=== PATIENT | female | born 1990 | race Caucasian/White ===

== ENCOUNTER 2016-09-11 16:39 | Outpatient (CLI) | payer MEDICAID, OTHER ==
[~2016-09-11] VITALS: Ht 165.1 cm; Wt 88.7 kg
[2016-09-11] MEDS ORDERED: PRENAT PO (17:29)
[2016-09-11 17:30] VITALS: BP 137/64; PULSE 99; RESP 18; Ht 165.1 cm; Wt 88.7 kg
[2016-09-11 17:43] LABS: ADD SCAN DIFF NO; BASOPHILS % 0.1 % (0.0-2.0); EOSINOPHILS % 0.4 % (0.0-7.0); HEMATOCRIT 27.9 % (37.0-47.0); HEMOGLOBIN 9.7 g/dl (12.0-16.0); LYMPHOCYTES # 1.6 10^3/ul (0.8-2.9); LYMPHOCYTES % 22.5 % (15.0-51.0); MEAN CORPUSCULAR HEMOGLOBIN 29.4 pg (29.0-33.0); MEAN CORPUSCULAR HGB CONC 34.8 g/dl (32.0-37.0); MEAN CORPUSCULAR VOLUME 84.5 fl (82.0-101.0); MEAN PLATELET VOLUME 9.8 fl (7.4-10.4); MONOCYTE # 0.6 10^3/ul (0.3-0.9); MONOCYTES % 8.8 % (0.0-11.0); NEUTROPHIL # 4.7 10^3/ul (1.6-7.5); NEUTROPHILS % 67.9 % (39.0-77.0); PLATELET COUNT 202 10^3/UL (140-415); RED CELL DISTRIBUTION WIDTH 12.4 % (11.5-14.5)
[2016-09-11 18:05] LABS: INR 0.96; PROTIME 12.8 Sec (12.2-14.2)
[2016-09-11 18:06] LABS: PARTIAL THROMBOPLASTIN TIME 24.4 Sec (25.0-35.0)
--- NOTE | 2016-09-11 18:06 | RADRPT ---
PROCEDURE: US biophysical profile. CLINICAL INDICATION: Hypertension. TECHNIQUE: Multiple sonographic images of the uterus were obtained. The images were revi ewed on a PACS workstation. COMPARISON: No prior studies are available for comparison. FINDINGS: There is a single live intrauterine gestation. heart rate is 124 beats per minute. The position is cephalic. The placenta is anterior grade 0 with no abruption or previa. The RADHA is 14.6 cm. (Normal = 5-20 cm.) Breathing Movement: 2 Gross Body Movement: 2 Tone: 2 Qualitative Amniotic Fluid Volume: 2 TOTAL: 8 IMPRESSION: 1. The biophysical score is 8/8. RPTAT: QQ .Bob Cardona MD, MD Date Time Electronically viewed and signed by .Bob Cardona MD, on 09/11/2016 18:06 .R/
[2016-09-11 18:10] LABS: ALBUMIN/GLOBULIN RATIO 1.07; BILIRUBIN,INDIRECT 0.1 mg/dl (0-1.1); BILIRUBIN,TOTAL 0.1 mg/dl (0.2-1.3); CALCIUM 8.6 mg/dl (8.4-10.2); CREATININE 0.36 mg/dl (0.44-1.00); POTASSIUM 3.6 mmol/L (3.5-5.1); TOTAL PROTEIN 5.8 g/dl (6.1-8.1); URIC ACID 4.6 mg/dl (3.1-7.9)
[2016-09-11 18:16] LABS: ADD UMIC YES; UR ASCORBIC ACID NEGATIVE (NEGATIVE); UR BILIRUBIN (Dip) NEGATIVE (NEGATIVE); UR BLOOD (Dip) NEGATIVE (NEGATIVE); UR CLARITY CLOUDY (CLEAR); UR COLOR YELLOW (YELLOW); UR GLUCOSE (Dip) NEGATIVE (NEGATIVE); UR KETONES (Dip) NEGATIVE (NEGATIVE); UR LEUKOCYTE ESTERASE (Dip) 3+ Leu/ul (NEGATIVE); UR MUCUS FEW /HPF (NONE SEEN); UR NITRITE (Dip) NEGATIVE (NEGATIVE); UR RBC 3 /HPF (0-5); UR SPECIFIC GRAVITY (Dip) 1.019 (1.003-1.030); UR SQUAMOUS EPITHELIAL CELL MODERATE /HPF (FEW); UR TOTAL PROTEIN (Dip) 1+ mg/dl (NEGATIVE); UR UROBILINOGEN (Dip) 2+ mg/dL (NEGATIVE)
--- NOTE | 2016-09-11 20:54 | TRIAGE ---
OB Triage Datetime Report Generated by CPN: 09/11/2016 20:53 Datetime: 09/11/2016 19:43 Labor Evaluation Frequency: IRRITABILITY NOTED Quality: Mild Pattern: Normal: <= 5 Contractions in 10 Minutes Resting Tone Verdon: Relaxed Heart Rate FHR Baseline Rate: 135 Monitor Mode: External US FHR Baseline Changes: No Baseline Change Variability: Moderate 6-25 bpm Accelerations: 15X15 Decelerations: None Category: Category I Datetime: 09/11/2016 19:15 Assessment Type: Triage Maternal Assessment Level of Consciousness: Fully Conscious DTR's/Clonus: DTRs 2+; No Clonus Headache: Denies Blurred Vision: No Respiratory Effort: Unlabored; Regular Rhythm; Equal Expansion Breath Sounds, Left: Clear and Equal Breath Sounds, Right: Clear and Equal Nausea/Vomiting: Denies RUQ Epigastric Pain: Denies Lower Extremities Edema: Bilateral Lower Extremities Degree: 2+ Upper Extremities Edema: None Degree: None Facial Edema: None Fall Risk Assessment History of Falling: (0) No Secondary Diagnosis: (0) No Ambulatory Aid: (0) Bedrest/Nurse Assist IV Therapy: (0) No Gait: (0) Normal/Bedrest/Immobile Mental Status: (0) Oriented to Own Ability Fall Score: 0 Fall Risk Score Definition: No Risk: No action required Datetime: 09/11/2016 18:00 Stage of : OB Triage Maternal Assessment Level of Consciousness: Fully Conscious Labor Evaluation Frequency: NONE Monitor Mode: External Resting Tone Verdon: Relaxed Heart Rate FHR Baseline Rate: 145 Monitor Mode: External US Variability: Moderate 6-25 bpm Accelerations: 15X15 Decelerations: None Pain Assessment Pain Scale: 0 Pain Goal: 3 Vaginal Exam Membrane Status: Intact Vaginal Bleeding: None Datetime: 09/11/2016 16:50 Assessment Type: Triage Maternal Assessment Level of Consciousness: Fully Conscious DTR's/Clonus: DTRs 2+; No Clonus Headache: Denies Blurred Vision: No Respiratory Effort: Unlabored; Regular Rhythm; Equal Expansion Breath Sounds, Left: Clear and Equal Breath Sounds, Right: Clear and Equal Nausea/Vomiting: Denies RUQ Epigastric Pain: Denies Lower Extremities Edema: Bilateral Lower Extremities Degree: 2+ Upper Extremities Edema: None Degree: None Facial Edema: None Fall Risk Assessment History of Falling: (0) No Secondary Diagnosis: (0) No Ambulatory Aid: (0) Bedrest/Nurse Assist IV Therapy: (0) No Gait: (0) Normal/Bedrest/Immobile Mental Status: (0) Oriented to Own Ability Fall Score: 0 Fall Risk Score Definition: No Risk: No action required Datetime: 09/11/2016 16:49 Time of Arrival: 09/11/2016 16:32 EGA: 29.5 Arrived By: Ambulatory Arrived From: Office Chief Complaint: PT SENT IN FOR EVAL. OF HBP Movement: Present Contractions: Denies/Absent Rupture of Membranes: Denies Vaginal Bleeding: None Vaginal Discharge: Denies Recent Sexual Intercouse: Denies Abdominal Trauma: Not Applicable Patient Complaints: None Time Provider Notified: 09/11/2016 18:30 Provider Notified: LUCILLE Initial Plan: [facility] PANEL, BPP Datetime: 09/11/2016 16:47 Monitor Mode: External Monitor Mode: External US
== END 2016-09-11 19:50 | disposition home or self-care (01) ==
LOC: OBT 16:39 → L-D 16:39 → OBT 19:50
PROVIDERS: ATTEND Obstetrics & Gynecology
DX: O16.3 Unspecified maternal hypertension, third trimester (principal); Z3A.29 29 weeks gestation of pregnancy; O26.893 Other specified pregnancy related conditions, third trimester; R10.9 Unspecified abdominal pain
CPT/HCPCS: 76818; 80053; 81001; 84560; 85025; 85384; 85610; 85730

== ENCOUNTER 2016-11-17 11:10 | Inpatient (IN) | payer OTHER ==
--- NOTE | 2016-09-12 01:08 | PN ---
Triage Information Date/Time Weeks of Gestation 29 5/7 : 1 Para: 0 Diabetes: none Hypertention: induced Additional information 26 Year-old G1 with SIUP at 29 5/7 wks referred from her primary Patient Support Tech fir further follow up. She has BP of 142/89 in office today. She has been receiving her care with Dr. Yun. She states good movement. She denies nausea, vomiting, shortness of breath, chest pain, and abdominal pain between contractions, headache, visual changes, vaginal bleeding or LOF. Physical Exam: General: Patient appears well, alert and oriented, NAD, appropriate mood and affect ABD: gravid, soft, non-tender. Back: No CVA tenderness (B/L) LE: No clubbing, cyanosis, edema, thigh or calf tenderness bilaterally FHT: 135 bpm , moderate variability with acceleration, no deceleration-category I Contractions: None Objective Heart Rate: 140's Assessment/Plan 26 Year-old G1 with SIUP at 29 5/7 wks with GHTN. All her BPs in triage were nml (129-138/61-65)CBC, CMP, U/A, US performed which were nml. - FHR: No sign of metabolic acidosis- Category I - Continuous EFM, toco - Contractions: None. - Reactive NST. BPP: 10/10 - Symptoms and sign of labor, preeclampsia, kick count discussed with patient, she voiced understanding. All of her questions answered. - Patient was discharged home in stable condition with the appropriate discharge instructions provided. I would like patient to have close follow-up with her primary physician or outpatient clinic in 1-2 days or return to the ER for worsening symptoms or any other urgent concerns. SALENA VIVAR Sep 12, 2016 01:08
[~2016-11-17] VITALS: Ht 165.1 cm; Wt 78.0 kg
[~2016-11-17 11:10] MED LIST: PRENAT PO
--- NOTE | 2016-11-17 11:39 | TRIAGE ---
OB Triage Datetime Report Generated by CPN: 11/17/2016 11:38 Datetime: 11/17/2016 11:37 Time of Arrival: 11/17/2016 11:05 EGA: 39.2 Arrived By: Wheelchair Arrived From: Home Chief Complaint: contractions Movement: Present Time Contractions Began: 11/17/2016 04:00 Rupture of Membranes: Denies Vaginal Bleeding: None Vaginal Discharge: Denies Recent Sexual Intercouse: Denies Abdominal Trauma: Not Applicable Patient Complaints: Contractions Time Provider Notified: 11/17/2016 11:30 Provider Notified: Dr Yun Initial Plan: efm/ sve/ us Datetime: 09/11/2016 19:15 Fall Risk Assessment Fall Score: 0 Fall Risk Score Definition: No Risk: No action required Datetime: 09/11/2016 16:50 Fall Risk Assessment Fall Score: 0 Fall Risk Score Definition: No Risk: No action required Datetime: 09/11/2016 16:49 EGA: 29.5
[2016-11-17] MEDS ORDERED: LACTATED RINGER'S 1,000 ML IV SCH (11:47)
[2016-11-17] MEDS ORDERED: MAGNESIUM SULFATE 20 GM/500 ML 500 ML IV SCH (11:48)
[2016-11-17] MEDS ORDERED: MAGNESIUM SULFATE 4 GM/100 ML 100 ML ONE (11:54)
[2016-11-17] MEDS ORDERED: LIDOCAINE 1% (MPF) 30 ML INJ INJ PRN (12:00)
[2016-11-17] MEDS ORDERED: METHYLERGONOVINE 0.2 MG INJ IM PRN ×2 (12:00→21:00)
[2016-11-17] MEDS ORDERED: CARBOPROST 250 MCG INJ IM PRN ×2 (12:00→21:00)
[2016-11-17] MEDS ORDERED: BUTORPHANOL 2 MG INJ IV PRN (12:00)
[2016-11-17] MEDS ORDERED: LACTATED RINGER'S 1,000 ML IV PRN (12:00)
[2016-11-17] MEDS ORDERED: OXYTOCIN 30 UNITS/LR 500 ML IV SCH ×3 (12:00→17:30)
[2016-11-17] MEDS ORDERED: AMPICILLIN 2 GM/NS (PMX) 100 ML IV ONE (12:00)
[2016-11-17] MEDS ORDERED: MISOPROSTOL 200 MCG TAB PR PRN ×2 (12:00→21:00)
[2016-11-17] MEDS ORDERED: MAGNESIUM SULFATE 4 GM/100 ML 100 ML IV ONE (12:00)
[2016-11-17] MEDS ORDERED: IBUPROFEN 600 MG TAB PO PRN (12:00)
[2016-11-17] MEDS ORDERED: OXYTOCIN 30 UNITS/LR 500 ML IV PRN ×2 (12:00→21:00)
[2016-11-17] MEDS ORDERED: LABETALOL HCL 20MG INJ IV ONE ×3 (12:00→21:00)
[2016-11-17 12:23] LABS: BASOPHILS % 0.2 % (0.0-2.0); EOSINOPHILS % 0.2 % (0.0-7.0); HEMATOCRIT 30.4 % (37.0-47.0); HEMOGLOBIN 10.3 g/dl (12.0-16.0); LYMPHOCYTES # 1.7 10^3/ul (0.8-2.9); LYMPHOCYTES % 13.5 % (15.0-51.0); MEAN CORPUSCULAR HEMOGLOBIN 26.7 pg (29.0-33.0); MEAN CORPUSCULAR HGB CONC 33.9 g/dl (32.0-37.0); MEAN CORPUSCULAR VOLUME 78.8 fl (82.0-101.0); MEAN PLATELET VOLUME 11.7 fl (7.4-10.4); MONOCYTE # 0.7 10^3/ul (0.3-0.9); MONOCYTES % 5.3 % (0.0-11.0); NEUTROPHILS % 80.5 % (39.0-77.0); PLATELET COUNT 215 10^3/UL (140-415); RED BLOOD COUNT 3.86 10^6/ul (4.20-5.40); RED CELL DISTRIBUTION WIDTH 13.7 % (11.5-14.5); WHITE BLOOD COUNT 12.3 10^3/ul (4.8-10.8)
[2016-11-17 12:54] LABS: INR 0.94; PROTIME 12.6 Sec (12.2-14.2)
[2016-11-17 12:55] LABS: PARTIAL THROMBOPLASTIN TIME 26.6 Sec (25.0-35.0)
[2016-11-17 12:56] LABS: ALBUMIN 2.6 g/dl (3.3-4.9); ALBUMIN/GLOBULIN RATIO 0.76; BILIRUBIN,INDIRECT 0.3 mg/dl (0-1.1); BILIRUBIN,TOTAL 0.3 mg/dl (0.2-1.3); CREATININE 0.49 mg/dl (0.44-1.00); POTASSIUM 3.6 mmol/L (3.5-5.1); URIC ACID 6.1 mg/dl (3.1-7.9)
--- NOTE | 2016-11-17 13:13 | RADRPT ---
PROCEDURE: OB ultrasound for biophysical profile CLINICAL INDICATION: Contractions TECHNIQUE: Multiple sonographic images of the pelvis were obtained. Transabdominal view of the gr avid uterus are available for review. The images were reviewed on a PACS workstation. COMPARISON: OB ultrasound 09/11/2016. FINDINGS: breathing movement = 2/2 tone = 2/2 motion = 2/2 RADHA = 2/2 RADHA = 14.5 cm Single live intrauterine with cardiac activity. heart rate equals 132.3 beats per minute. Presentation is cephalic. The placenta is anterior. IMPRESSION: 1. Single viable intrauterine gestation. 2. Biophysical profile = 8/8. 3. RADHA = 14.5 cm. RPTAT: KK .Kai Alves MD, MD Date Time Electronically viewed and signed by .Kai Alves MD, MD on 11/17/2016 13:12 .B/
--- NOTE | 2016-11-17 13:14 | RADRPT ---
PROCEDURE: US OB - Limited weight. CLINICAL INDICATION: Contractions TECHNIQUE: Multiple sonographic images of the pelvis were obtained. Transabdominal imaging only w as performed. The images were reviewed on a PACS workstation. COMPARISON: No prior studies are available for comparison. FINDINGS: There is a single viable intrauterine gestation. Cardiac activity is present with 136 beats per min rincon. There is a cephalic presentation. Measurements were made in order to determine age. The results are as follows: BPD = 9.3 cm HC = 32 point a cm AC = 34.4 cm FL = 6.9 .cm Estimated gestational age of approximately 37 weeks 2 days +/ - 2 weeks 4 days by ultrasound evalua tion. The estimated date of delivery is 12/06/2016 by ultrasound. The EFW = 3229 +/- 484 g (26%). The placenta is anterior. IMPRESSION: 1. Single viable intrauterine gestation of approximately 37 weeks 2 days with estimated date of del isi of 12/06/2016 by ultrasound. 2. The estimated weight by ultrasound is 3229 g (26%) . RPTAT: KK .Kai Alves MD, MD Date Time Electronically viewed and signed by .Kai Avles MD, MD on 11/17/2016 13:14 .B/
[2016-11-17] MEDS ORDERED: AMPICILLIN 1 GM/NS (PMX) 50 ML IV SCH (16:00)
[2016-11-17 16:31] LABS: ADD UMIC YES; UR ASCORBIC ACID NEGATIVE (NEGATIVE); UR BILIRUBIN (Dip) NEGATIVE (NEGATIVE); UR BLOOD (Dip) 1+ mg/dL (NEGATIVE); UR CLARITY SLIGHTLY CLOUDY (CLEAR); UR COLOR YELLOW (YELLOW); UR GLUCOSE (Dip) NEGATIVE (NEGATIVE); UR KETONES (Dip) NEGATIVE (NEGATIVE); UR LEUKOCYTE ESTERASE (Dip) TRACE Leu/ul (NEGATIVE); UR MUCUS FEW /HPF (NONE SEEN); UR NITRITE (Dip) NEGATIVE (NEGATIVE); UR RBC 1 /HPF (0-5); UR SPECIFIC GRAVITY (Dip) 1.014 (1.003-1.030); UR SQUAMOUS EPITHELIAL CELL FEW /HPF (FEW); UR TOTAL PROTEIN (Dip) 2+ mg/dl (NEGATIVE); UR UROBILINOGEN (Dip) NEGATIVE (NEGATIVE)
[2016-11-17] MEDS ORDERED: CEFAZOLIN 2 GM/50 ML (PMX) 50 ML IVPB ONE (18:00)
[2016-11-17] MEDS ORDERED: ONDANSETRON 4 MG INJ IV STA (18:01)
[2016-11-17] MEDS ORDERED: CITRIC ACID/NA CITRATE 30 ML CUP PO ONE (18:30)
[2016-11-17 19:10] LABS: BARBITURATES Negative (NEGATIVE); BENZODIAZEPINES Negative (NEGATIVE); CANNABINOIDS Negative (NEGATIVE); COCAINE Negative (NEGATIVE); OPIATES Negative (NEGATIVE)
--- NOTE | 2016-11-17 19:12 | QN ---
Documentation Comment history and physical dictated BRIEN ADKINS MD Nov 17, 2016 19:12
[2016-11-17 19:18] VITALS: BP 175/90; PULSE 90; RESP 18
[2016-11-17 19:19] VITALS: Ht 165.1 cm; Wt 78.0 kg
[2016-11-17] MEDS ORDERED: morphine SULFATE/PF (10 MG/10 ML) INJ ONE (19:40)
[2016-11-17] MEDS ORDERED: PHENYLephrine (100 MCG/ML) 5ML SYG ONE (19:55)
--- NOTE | 2016-11-17 20:47 | SIPON ---
Date/Time of Note Date/Time of Note DATE: 11/17/16 TIME: 20:44 Operative Report Preoperative Diagnosis 26-year-old 1 para 0 interim at 38 weeks gestational age chronic hypertension superimposed preeclampsia with severe features limited care remote from delivery Postoperative Diagnosis Same Operation/Procedure Performed Primary low transverse delivery Surgeon: BRIEN ADKINS MD certified pathology assistant: ASMITA LÓPEZ MD Anesthesia Type: spinal Estimated Blood Loss: other (500ml) Transfusion Required: no Specimen: none Grafts/Implants: none Complications: no BRIEN ADKINS MD Nov 17, 2016 20:47
[2016-11-17] MEDS ORDERED: LABETALOL HCL 20MG INJ IV PRN (21:00)
[2016-11-17] MEDS ORDERED: NALOXONE (0.4 MG/ML) INJ IV PRN (21:00)
[2016-11-17] MEDS ORDERED: HYDROmorphONE 1 MG/ML SYG IV PRN ×2 (21:00)
[2016-11-17] MEDS: CEFAZOLIN 2 GM/50 ML (PMX) 50 ML IV SCH (21:00)
[2016-11-17] MEDS ORDERED: OXYCODONE/ACETAMINOPHEN (5/325) TAB PO PRN (21:00)
[2016-11-17] MEDS ORDERED: CA GLUCONATE (GM) 10% 10ML INJ IV PRN (21:00)
[2016-11-17] MEDS ORDERED: KETOROLAC 30 MG INJ IV PRN ×2 (21:00)
[2016-11-17] MEDS: SENNA/DOCUSATE NA (8.6MG/50MG) TAB PO SCH (21:00)
[2016-11-17] MEDS ORDERED: LANOLIN 7 GM TUBE TOP PRN (21:00)
[2016-11-17] MEDS ORDERED: ZOLPIDEM 5 MG TAB PO PRN (21:00)
[2016-11-17] MEDS ORDERED: ALBUTEROL 0.083% (NEB) 2.5 MG/3 ML AMP HHN PRN (21:00)
[2016-11-17] MEDS ORDERED: HYDROmorphONE (0.2 MG/ML) 10ML SYG IV PRN ×3 (21:00)
[2016-11-17] MEDS ORDERED: DIPHENHYDRAMINE 50 MG INJ IV PRN ×2 (21:00)
[2016-11-17] MEDS ORDERED: ONDANSETRON 4 MG INJ IV PRN ×2 (21:00)
[2016-11-17] MEDS ORDERED: MEPERIDINE 25 MG INJ IV PRN (21:00)
[2016-11-17] MEDS ORDERED: METOCLOPRAMIDE 10 MG INJ IV PRN (21:00)
[2016-11-17] MEDS ORDERED: FENTAnyl 50 MCG/ML VIAL IV PRN ×3 (21:00)
[2016-11-17] MEDS ORDERED: hydrALAzine 20 MG INJ IV ONE (21:00)
--- NOTE | 2016-11-17 21:44 | PREOPHP ---
DATE OF ADMISSION: 11/17/2016 HISTORY OF PRESENT ILLNESS: Ms. Ca Roberts is a 26-year-old 1, para 0, EDC 11/27/2016 intra at 38 weeks and 4 days gestational age with a history of hyperthyroidism and chronic hypertension who presented to triage complaining of contractions. She was seen and evaluated in triage, which she had elevated blood pressure in the 170s over 100s, and the patient complaining of severe frontal headaches. Magnesium sulfate was started with antihypertensive medications and after explaining the risks, benefits, alternatives, patient agreed for a delivery since she is remote from delivery. Her care was very limited at [facility]. She had approximately 3 visits. PAST MEDICAL HISTORY: Hyperthyroidism and chronic hypertension. MEDICATIONS: Labetalol and vitamins. PAST SURGICAL HISTORY: None. OB HISTORY: Primi . DIRECTOR OF CURRICULUM HISTORY: Twelve, regular 34 days. Denies any sexually transmitted disease. Sexually active with 1 partner. SOCIAL HISTORY: Denies any smoking, drugs, or alcohol. FAMILY HISTORY: None. REVIEW OF SYSTEMS: All within normal except history of present illness. PHYSICAL EXAMINATION: HEENT: Within normal limits. LUNGS: CTA bilaterally. CARDIOVASCULAR: S1, S2. Regular rate and rhythm. ABDOMEN: No epigastric pain. No CVA bilateral, gravid nontender. EXTREMITIES: Plus 2 bilateral pitting edema. VAGINAL EXAM: Fingertip 10 percent effaced, -3 station. ASSESSMENT: 1. A 26-year-old, 1, para 0, intra at 38 weeks and 4 days gestational age. 2. Hyperthyroidism. 3. Chronic hypertension with superimposed preeclampsia/severe features, remote from delivery. PLAN: Consent for a primary . Risks, benefits, alternatives explained and all questions were answered. Dictated By: Angel Yun MD /day/nancy /Document#: [id number] JOSE
--- NOTE | 2016-11-18 00:12 | OPR ---
DATE OF OPERATION: 11/17/2016 PREOPERATIVE DIAGNOSIS: A 26-year-old, 1, para 0, intrauterine at 38 weeks gestational age, chronic hypertension, superimposed preeclampsia with severe features, hyperthyroid, limited care, remote from delivery. Desires delivery. POSTOPERATIVE DIAGNOSIS: A 26-year-old, 1, para 0, intrauterine at 38 weeks gestational age, chronic hypertension, superimposed preeclampsia with severe features, hyperthyroid, limited care, remote from delivery. Desires delivery. OPERATIVE PROCEDURE: Primary low transverse delivery via Pfannenstiel incision. SURGEON: Angel Yun MD RESIDENT SERVICE COORDINATOR: Nelly Stovall MD ANESTHESIA: Spinal. COMPLICATIONS: None. ESTIMATED BLOOD LOSS: 500 mL. FINDINGS: A viable female, Apgars 8 and 9 respectively at 1 and 5 minutes, weight 7 pounds 6 ounces with normal uterus, tubes, and ovaries. OPERATIVE PROCEDURE: After explaining the risks, benefits, and alternatives, consent signed in chart, the patient was taken to the operating room where spinal anesthesia was found to be adequate. She was then prepared and draped in normal sterile fashion in dorsal supine position with a leftward tilt. A Pfannenstiel skin incision was then made with a scalpel and carried through the underlying fascia. The fascia was incised in midline and the incision was extended laterally with Ge scissors. The superior aspect of the fascial incision was grasped with Amando clamps, elevated, and the underlying rectus muscles dissected off bluntly. Attention was then turned to the inferior aspect of incision, which in similar fashion was grasped with Amando clamps and the rectus muscles dissected off bluntly. The rectus muscle was in midline. Peritoneum identified, tented up and entered sharply with Metzenbaum scissors. The peritoneal incision was extended superiorly and inferiorly with good visualization of the bladder. The bladder blade was then inserted and the vesicouterine peritoneum identified, grasped with pickups, and entered sharply with Metzenbaum scissors. This incision was extended laterally and bladder flap created digitally. The bladder blade was then reinserted and the lower segment incised in a transverse fashion with the scalpel. The uterine incision was extended laterally. The bladder blade was removed and the infant's head delivered atraumatically. The nose and mouth were suctioned, cord clamped and cut, and the infant was handed off to waiting histology manager. The placenta was then removed. The uterus was exteriorized and cleared of all clots and debris. The uterine incision was repaired with 1-0 chromic in a running locked fashion. A 2nd layer of the same suture was used for imbrication, obtaining excellent hemostasis. The uterus was returned to the abdomen. The gutters were cleared of all clots. The peritoneum and rectus abdominal muscles reapproximated with 3-0 Vicryl in interrupted fashion. The fascia was reapproximated with 0 Vicryl in a running fashion. The subcutaneous tissue was reapproximated with 2-0 plain gut in a running fashion. The skin was closed with absorbable mario. The patient tolerated the procedure well. Sponge, lap, and needle counts correct times 2. The patient was taken to the recovery room in stable condition. Dictated By: Angel Yun MD /day/hang /Document#: [id number] JOSE
[2016-11-18] MEDS: MAGNESIUM SULFATE 20 GM/500 ML 500 ML IV SCH ×3 (00:18→19:04)
[2016-11-18] MEDS ORDERED: LABETALOL 200 MG TAB PO SCH (02:00)
[2016-11-18 02:07] LABS: T3 UPTAKE 39.3 % (23.5-40.5)
[2016-11-18 02:38] LABS: THYROID STIMULATING HORMONE < 0.015 MIU/L (0.465-4.680)
[2016-11-18] MEDS: LACTATED RINGER'S 1,000 ML IV SCH ×4 (03:50→20:51)
[2016-11-18] MEDS: CEFAZOLIN 2 GM/50 ML (PMX) 50 ML IV SCH ×3 (04:55→20:35)
[2016-11-18 06:57] LABS: BASOPHILS % 0.1 % (0.0-2.0); HEMOGLOBIN 9.5 g/dl (12.0-16.0); LYMPHOCYTES # 1.3 10^3/ul (0.8-2.9); LYMPHOCYTES % 8.2 % (15.0-51.0); MEAN CORPUSCULAR HEMOGLOBIN 25.5 pg (29.0-33.0); MEAN CORPUSCULAR HGB CONC 31.7 g/dl (32.0-37.0); MEAN CORPUSCULAR VOLUME 80.4 fl (82.0-101.0); MEAN PLATELET VOLUME 11.5 fl (7.4-10.4); MONOCYTES % 6.2 % (0.0-11.0); NEUTROPHILS % 85.1 % (39.0-77.0); PLATELET COUNT 173 10^3/UL (140-415); RED BLOOD COUNT 3.73 10^6/ul (4.20-5.40); RED CELL DISTRIBUTION WIDTH 14.2 % (11.5-14.5)
[2016-11-18] MEDS ORDERED: PRENATAL VITAMIN PO SCH (09:00)
--- NOTE | 2016-11-18 09:03 | CONS ---
Date/Time of Note Date/Time of Note DATE: 11/18/16 TIME: 08:51 Assessment/Plan Assessment/Plan Additional Assessment/Plan 1. HTN - will increase dose of Labetalol to 300mg po BID. - Cont IV labetalol as needed 2. Hyperthyroidism - pt has been off Metomazole during almost entire - Endocrine consult has been placed 3. SIRS, as evidenced by Leukocytosis and tachycardia - check urine culture Consultation Date/Type/Reason Admit Date/Time Hx of Present Illness This is a 26 yo female with history of HTN and hyperthyroidism. She is admitted to OB and just delivered through . Consult was placed for mgmt of HTN. She has been taking Labetalol 100mg BID throughout . She said BP has been in 140-150s range during when checked at home. Here in the hospital, it has been in 160s despite IV and po Labetalol. as far as hyperthyroidism is concerned, she was diagnosed 2 years and has been on Metimazole. She stopped taking med once she found out that she was . She c/o of feeling hot and having tremors in the past for which she said Labetalol helps. . Social History Smoking Status: Never smoker Exam/Review of Systems Vital Signs Vitals Vital Signs Date Time Temp Pulse Resp B/P Pulse Ox O2 Delivery O2 Flow Rate FiO2 11/17/16 19:18 98.0 90 18 175/90 98 Room Air Intake and Output 11/17/16 11/17/16 11/18/16 15:00 23:00 07:00 Intake Total 1300 ml 18855 ml 925 ml Output Total 350 ml 1500 ml 750 ml Balance 950 ml 9700 ml 175 ml Exam Constitutional: alert, oriented, well developed Head: atraumatic, normocephalic Eyes: other (proptosis of eyes noted) Respiratory: clear to auscultation, normal air movement Cardiovascular: other (tachycardic) Gastrointestinal: non-tender, soft Extremities: normal pulses Results Result Diagram: 11/18/16 0520 11/17/16 1150 Results 24 hrs Laboratory Tests Test 11/17/16 11:50 11/17/16 13:26 11/17/16 17:39 11/17/16 18:12 White Blood Count 12.3 #H Red Blood Count 3.86 L Hemoglobin 10.3 L Hematocrit 30.4 L Mean Corpuscular Volume 78.8 L Mean Corpuscular Hemoglobin 26.7 L Mean Corpuscular Hemoglobin Concent 33.9 Red Cell Distribution Width 13.7 Platelet Count 215 Mean Platelet Volume 11.7 H Neutrophils % 80.5 H Lymphocytes % 13.5 L Monocytes % 5.3 Eosinophils % 0.2 Basophils % 0.2 Nucleated Red Blood Cells % 0.0 Neutrophils # (Manual) 9.9 H Lymphocytes # 1.7 Monocytes # 0.7 Eosinophils # 0.0 Basophils # 0.0 Nucleated Red Blood Cells # 0.0 Prothrombin Time 12.6 Prothrombin Time Ratio 1.0 INR International Normalized Ratio 0.94 Activated Partial Thromboplast Time 26.6 Fibrinogen 341.0 # Sodium Level 135 Potassium Level 3.6 Chloride Level 109 Carbon Dioxide Level 21 Anion Gap 9 Blood Urea Nitrogen 4 L Creatinine 0.49 Glucose Level 72 Uric Acid 6.1 Calcium Level 8.0 L Total Bilirubin 0.3 Direct Bilirubin 0.00 Indirect Bilirubin 0.3 Aspartate Amino Transf (AST/SGOT) 23 Alanine Aminotransferase (ALT/SGPT) 22 Alkaline Phosphatase 220 H Total Protein 6.0 L Albumin 2.6 L Globulin 3.40 H Albumin/Globulin Ratio 0.76 Rapid Plasma Reagin NONREACTIVE Hepatitis B Surface Antigen NEGATIVE Urine Color YELLOW Urine Clarity SLIGHTLY CLOUDY A Urine pH 6.0 Urine Specific [place] 1.014 Urine Ketones NEGATIVE Urine Nitrite NEGATIVE Urine Bilirubin NEGATIVE Urine Urobilinogen NEGATIVE Urine Leukocyte Esterase TRACE A Urine Microscopic RBC 1 Urine Microscopic WBC 2 Urine Squamous Epithelial Cells FEW Urine Mucus FEW A Urine Hemoglobin 1+ H Urine Glucose NEGATIVE Urine Total Protein 2+ H Urine Opiates Screen Negative Urine Barbiturates Negative Urine Amphetamines Screen Negative Urine Benzodiazepines Screen Negative Urine Cocaine Screen Negative Urine Cannabinoids Negative Magnesium Level 4.2 H Test 11/18/16 00:49 11/18/16 01:30 11/18/16 05:20 Magnesium Level 4.4 H 3.4 H Thyroid Stimulating Hormone (TSH) < 0.015 L Free Thyroxine Index 9.79 H Thyroxine (T4) > 24.9 H Triiodothyronine (T3) Uptake 39.3 White Blood Count 16.0 #H Red Blood Count 3.73 L Hemoglobin 9.5 L Hematocrit 30.0 L Mean Corpuscular Volume 80.4 L Mean Corpuscular Hemoglobin 25.5 L Mean Corpuscular Hemoglobin Concent 31.7 L Red Cell Distribution Width 14.2 Platelet Count 173 Mean Platelet Volume 11.5 H Neutrophils % 85.1 H Lymphocytes % 8.2 L Monocytes % 6.2 Eosinophils % 0.0 Basophils % 0.1 Nucleated Red Blood Cells % 0.0 Neutrophils # (Manual) 13.6 H Lymphocytes # 1.3 Monocytes # 1.0 H Eosinophils # 0.0 Basophils # 0.0 Nucleated Red Blood Cells # 0.0 Medications Medications Current Medications Ketorolac Tromethamine (Toradol) 30 mg Q6H PRN IV PAIN; Start 11/17/16 at 21:00 ; Stop 11/18/16 at 20:59 Hydromorphone HCl (Dilaudid) 0.2 mg Q3H PRN IV PAIN LEVEL 1-5; Start 11/17/16 at 21:00; Stop 11/18/16 at 20:59 Hydromorphone HCl (Dilaudid) 0.4 mg Q3H PRN IV PAIN LEVEL 6-10; Start 11/17/16 at 21:00; Stop 11/18/16 at 20:59 Diphenhydramine HCl (Benadryl) 25 mg Q6H PRN IV ITCHING; Start 11/17/16 at 21:00 ; Stop 11/18/16 at 20:59 Ondansetron HCl 4 mg 4 mg Q6H PRN IV NAUSEA AND/OR VOMITING; Start 11/17/16 at 21:00; Stop 11/18/16 at 20:59 Lactated Ringer's 1,000 ml @ 125 mls/hr Q8H IV Last administered on 11/18/16 03:50; Admin Dose 125 MLS/HR; Start 11/17/16 at 20:51 Cefazolin Sodium/ Dextrose (Ancef 2 Gm/50 ml (Pmx)) 50 ml @ 100 mls/hr Q8H IV Last administered on 11/18/16 04:55; Admin Dose 100 MLS/HR; Start 11/17/16 at 21: 00; Stop 11/18/16 at 13:29 Oxycodone/ Acetaminophen (Percocet (5/ 325)) 1 tab Q4H PRN PO PAIN LEVEL 4-6; Start 11/17/16 at 21:00 Oxycodone/ Acetaminophen (Percocet (5/ 325)) 2 tab Q4H PRN PO PAIN LEVEL 7-10; Start 11/17/16 at 21:00 Ibuprofen (Motrin) 600 mg Q6 PO ; Start 11/18/16 at 21:00 Simethicone (Mylicon) 160 mg Q8H PRN PO DISTENSION/GAS/BLOATING; Start 11/17/16 at 21:00 Senna/Docusate Sodium 1 tab 1 tab BID PO ; Start 11/17/16 at 21:00 Oxytocin/Lactated Ringer's 500 ml @ 0 mls/hr ONCE PRN IV For Hemorrhage Management; Start 11/17/16 at 21:00 Methylergonovine Maleate (Methergine) 0.2 mg ONCE PRN IM VAGINAL BLEEDING; Start 11/17/16 at 21:00 Carboprost Tromethamine (Hemabate) 250 mcg ONCE PRN IM VAGINAL BLEEDING; Start 11/17/16 at 21:00 Misoprostol 1000 mcg 1,000 mcg ONCE PRN CO VAGINAL BLEEDING; Start 11/17/16 at 21 :00 Magnesium Sulfate (Magnesium Sulfate 20 Gm/500 ml) 500 ml @ 50 mls/hr Q10H IV Last administered on 11/18/16 00:18; Admin Dose 50 MLS/HR; Start 11/17/16 at 20: 51 Calcium Gluconate (Ca Gluc) 1 gm ONCE PRN IV FOR MAGNESIUM TOXICITY; Start at 21:00 Labetalol HCl (Labetalol) 20 mg Q10M PRN IV ELEVATED BLOOD PRESSURE Last administered on 11/18/16 01:21; Admin Dose 20 MG; Start 11/17/16 at 21:00 Labetalol HCl (Normodyne) 200 mg BID PO Last administered on 11/18/16 01:43; Admin Dose 200 MG; Start 11/18/16 at 02:00 MAME MOTA MD Nov 18, 2016 09:01
[2016-11-18] MEDS: LABETALOL 200 MG TAB PO SCH ×2 (09:19→21:47)
[2016-11-18] MEDS ORDERED: LABETALOL HCL 20MG INJ IV ONE (10:30)
--- NOTE | 2016-11-18 12:16 | CONS ---
Date/Time of Note Date/Time of Note DATE: 11/18/16 TIME: 12:08 Assessment/Plan Assessment/Plan Problems: (1) Graves' disease with exophthalmos Status: Chronic Comment: This patient has not had a formalized 18 month course of antithyroid drug therapy. However she is immediately and breast-feeding. As such her routine therapeutics will have to be measured based upon her life circumstances. For now she will be off of therapeutics and allowed to be hyperthyroid. When she is done with breast-feeding that she can either go on to a formalized 18 month course of antithyroid drug therapy using methimazole or alternatively she can be treated with radioactive iodine ablation to resolve this. (2) Pre-eclampsia Status: Acute Comment: She reports that she did not have hypertension pre-existing the . Regardless she has had preeclampsia leading to delivery and she is modestly hypertensive now. She will need careful observation magnesium and labetalol for the time being. This will be managed by the delivering marketing officer Qualifiers: Qualified Code: O14.93 - Pre-eclampsia in third trimester Consultation Date/Type/Reason Admit Date/Time Date of Consultation: Nov 18, 2016 Type of Consultation: Endocrinology Reason for Consultation Graves' disease with thyrotoxicosis and Graves' orbitopathy; preeclampsia with hypertension; immediately post Referring Provider: LENNY STEELE of Present Illness Charming 26-year-old female with a family history of Graves' disease who has Graves' disease herself. She was diagnosed 2 years ago was under the treatment of Dr. Jen Shen. She was on methimazole and dosages up to 40 mg a day although she was variably compliant. Had an established diagnosis of Graves' orbitopathy and that has not changed. Off of all treatment at the second month of due to the risk benefit ratio of the antithyroid drugs versus . She delivered yesterday for indication of preeclampsia reportedly. At this time she does have multiple review of systems consistent with thyrotoxicosis however she reports this is been stable over some months. Please note she is still hypertensive in the recovery area. In addition to this she is breast-feeding and has plans to breast-feed as long as possible. There is no review of systems consistent with thyroid storm, simply thyrotoxicosis. Constitutional: no complaints (No fevers no chills no sweats) Eyes: no complaints ENT: no complaints Respiratory: no complaints (Shortness of breath no wheezing) Cardiovascular: no complaints (No palpitations (on beta-blockade)) Gastrointestinal: no complaints (Denies hyper defecation) Genitourinary: no complaints Musculoskeletal: no complaints Skin: no complaints Neurologic: other (Positive fine high-frequency tremor) Endocrine: temp intolerance (Intolerance) Past Medical History Medical History: hyperthyroid (Moves disease orbitopathy) Past Surgical History immediately post Family History Significant Family History: other (Maternal grandmother with Graves' disease) Social History Alcohol Use: none Smoking Status: Never smoker Drug Use: none Exam/Review of Systems Vital Signs Vitals Vital Signs Date Time Temp Pulse Resp B/P Pulse Ox O2 Delivery O2 Flow Rate FiO2 11/17/16 19:18 98.0 90 18 175/90 98 Room Air Intake and Output 11/17/16 11/17/16 11/18/16 15:00 23:00 07:00 Intake Total 1300 ml 50704 ml 925 ml Output Total 350 ml 1500 ml 750 ml Balance 950 ml 9700 ml 175 ml Exam Charming young woman in bed breast-feeding Constitutional: alert, oriented Head: atraumatic, normocephalic Eyes: EOMI, nl conjunctiva, nl lids, nl sclera, other (As of exophthalmos 5 mm left 6 mm right) ENMT: mucosa pink and moist, nl external ears & nose, nl lips & teeth, nl nasal mucosa & septum Neck: non-tender, other (Thyroid is enlarged roughly 2-1/2 times normal smooth with a venous hum), supple Respiratory: clear to auscultation, normal air movement Cardiovascular: nl pulses, regular rate and rhythm Gastrointestinal: nl liver, spleen, non-tender, other (Lower abdominal surgical binding), soft Extremities: normal pulses Neurological: BIRD TRAPPER II-XII intact, nl mental status, nl speech, other (High- frequency tremor) Results Result Diagram: 11/18/16 0520 11/17/16 1150 Results 24 hrs Laboratory Tests Test 11/17/16 13:26 11/17/16 17:39 11/17/16 18:12 11/18/16 00:49 Urine Color YELLOW Urine Clarity SLIGHTLY CLOUDY A Urine pH 6.0 Urine Specific [place] 1.014 Urine Ketones NEGATIVE Urine Nitrite NEGATIVE Urine Bilirubin NEGATIVE Urine Urobilinogen NEGATIVE Urine Leukocyte Esterase TRACE A Urine Microscopic RBC 1 Urine Microscopic WBC 2 Urine Squamous Epithelial Cells FEW Urine Mucus FEW A Urine Hemoglobin 1+ H Urine Glucose NEGATIVE Urine Total Protein 2+ H Urine Opiates Screen Negative Urine Barbiturates Negative Urine Amphetamines Screen Negative Urine Benzodiazepines Screen Negative Urine Cocaine Screen Negative Urine Cannabinoids Negative Magnesium Level 4.2 H 4.4 H Test 11/18/16 01:30 11/18/16 05:20 Thyroid Stimulating Hormone (TSH) < 0.015 L Free Thyroxine Index 9.79 H Thyroxine (T4) > 24.9 H Triiodothyronine (T3) Uptake 39.3 White Blood Count 16.0 #H Red Blood Count 3.73 L Hemoglobin 9.5 L Hematocrit 30.0 L Mean Corpuscular Volume 80.4 L Mean Corpuscular Hemoglobin 25.5 L Mean Corpuscular Hemoglobin Concent 31.7 L Red Cell Distribution Width 14.2 Platelet Count 173 Mean Platelet Volume 11.5 H Neutrophils % 85.1 H Lymphocytes % 8.2 L Monocytes % 6.2 Eosinophils % 0.0 Basophils % 0.1 Nucleated Red Blood Cells % 0.0 Neutrophils # (Manual) 13.6 H Lymphocytes # 1.3 Monocytes # 1.0 H Eosinophils # 0.0 Basophils # 0.0 Nucleated Red Blood Cells # 0.0 Magnesium Level 3.4 H Medications Medications Current Medications Ketorolac Tromethamine (Toradol) 30 mg Q6H PRN IV PAIN; Start 11/17/16 at 21:00 ; Stop 11/18/16 at 20:59 Hydromorphone HCl (Dilaudid) 0.2 mg Q3H PRN IV PAIN LEVEL 1-5; Start 11/17/16 at 21:00; Stop 11/18/16 at 20:59 Hydromorphone HCl (Dilaudid) 0.4 mg Q3H PRN IV PAIN LEVEL 6-10; Start 11/17/16 at 21:00; Stop 11/18/16 at 20:59 Diphenhydramine HCl (Benadryl) 25 mg Q6H PRN IV ITCHING; Start 11/17/16 at 21:00 ; Stop 11/18/16 at 20:59 Ondansetron HCl 4 mg 4 mg Q6H PRN IV NAUSEA AND/OR VOMITING; Start 11/17/16 at 21:00; Stop 11/18/16 at 20:59 Lactated Ringer's 1,000 ml @ 125 mls/hr Q8H IV Last administered on 11/18/16 03:50; Admin Dose 125 MLS/HR; Start 11/17/16 at 20:51 Cefazolin Sodium/ Dextrose (Ancef 2 Gm/50 ml (Pmx)) 50 ml @ 100 mls/hr Q8H IV Last administered on 11/18/16 04:55; Admin Dose 100 MLS/HR; Start 11/17/16 at 21: 00; Stop 11/18/16 at 13:29 Oxycodone/ Acetaminophen (Percocet (5/ 325)) 1 tab Q4H PRN PO PAIN LEVEL 4-6; Start 11/17/16 at 21:00 Oxycodone/ Acetaminophen (Percocet (5/ 325)) 2 tab Q4H PRN PO PAIN LEVEL 7-10; Start 11/17/16 at 21:00 Ibuprofen (Motrin) 600 mg Q6 PO ; Start 11/18/16 at 21:00 Simethicone (Mylicon) 160 mg Q8H PRN PO DISTENSION/GAS/BLOATING; Start 11/17/16 at 21:00 Senna/Docusate Sodium 1 tab 1 tab BID PO ; Start 11/17/16 at 21:00 Oxytocin/Lactated Ringer's 500 ml @ 0 mls/hr ONCE PRN IV For Hemorrhage Management; Start 11/17/16 at 21:00 Methylergonovine Maleate (Methergine) 0.2 mg ONCE PRN IM VAGINAL BLEEDING; Start 11/17/16 at 21:00 Carboprost Tromethamine (Hemabate) 250 mcg ONCE PRN IM VAGINAL BLEEDING; Start 11/17/16 at 21:00 Misoprostol 1000 mcg 1,000 mcg ONCE PRN [place] VAGINAL BLEEDING; Start 11/17/16 at 21 :00 Magnesium Sulfate (Magnesium Sulfate 20 Gm/500 ml) 500 ml @ 50 mls/hr Q10H IV Last administered on 11/18/16 00:18; Admin Dose 50 MLS/HR; Start 11/17/16 at 20: 51 Calcium Gluconate (Ca Gluc) 1 gm ONCE PRN IV FOR MAGNESIUM TOXICITY; Start at 21:00 Labetalol HCl (Labetalol) 20 mg Q10M PRN IV ELEVATED BLOOD PRESSURE Last administered on 11/18/16 01:21; Admin Dose 20 MG; Start 11/17/16 at 21:00 Labetalol HCl (Normodyne) 300 mg BID PO Last administered on 11/18/16 09:19; Admin Dose 300 MG; Start 11/18/16 at 09:15 SYLVIA GONZALES MD Nov 18, 2016 12:16
--- NOTE | 2016-11-18 15:56 | PN ---
Date/Time of Note Date/Time of Note DATE: 11/18/16 TIME: 15:53 Assessment/Plan VTE Prophylaxis VTE Prophylaxis Intervention: anti-embolic stocking Lines/Catheters IV Catheter Type (from Nrsg): Peripheral IV Assessment/Plan Chief Complaint/Hosp Course S: Events noted O: Bp noted No pallor Regular Clear Tender positive bowel sounds Mild edema A/P 1. Hypertensive urgency/eclampsia, mod stable; continue beta-pedro luis 2. Graves' disease/hyperthyroidism. Cont beta-pedro luis. Definitive management down the line 3. Anemia probably asymptomatic 4. Postop day 1 section 5. Possible nonadherence Problems: Exam/Review of Systems Vital Signs Vitals Vital Signs Date Time Temp Pulse Resp B/P Pulse Ox O2 Delivery O2 Flow Rate FiO2 11/17/16 19:18 98.0 90 18 175/90 98 Room Air Intake and Output 11/17/16 11/17/16 11/18/16 15:00 23:00 07:00 Intake Total 1300 ml 23961 ml 925 ml Output Total 350 ml 1500 ml 750 ml Balance 950 ml 9700 ml 175 ml Results Result Diagram: 11/18/16 0520 11/17/16 1150 Results 24 hrs Laboratory Tests Test 11/17/16 17:39 11/17/16 18:12 11/18/16 00:49 11/18/16 01:30 Urine Opiates Screen Negative Urine Barbiturates Negative Urine Amphetamines Screen Negative Urine Benzodiazepines Screen Negative Urine Cocaine Screen Negative Urine Cannabinoids Negative Magnesium Level 4.2 H 4.4 H Thyroid Stimulating Hormone (TSH) < 0.015 L Free Thyroxine Index 9.79 H Thyroxine (T4) > 24.9 H Triiodothyronine (T3) Uptake 39.3 Test 11/18/16 05:20 11/18/16 11:46 White Blood Count 16.0 #H Red Blood Count 3.73 L Hemoglobin 9.5 L Hematocrit 30.0 L Mean Corpuscular Volume 80.4 L Mean Corpuscular Hemoglobin 25.5 L Mean Corpuscular Hemoglobin Concent 31.7 L Red Cell Distribution Width 14.2 Platelet Count 173 Mean Platelet Volume 11.5 H Neutrophils % 85.1 H Lymphocytes % 8.2 L Monocytes % 6.2 Eosinophils % 0.0 Basophils % 0.1 Nucleated Red Blood Cells % 0.0 Neutrophils # (Manual) 13.6 H Lymphocytes # 1.3 Monocytes # 1.0 H Eosinophils # 0.0 Basophils # 0.0 Nucleated Red Blood Cells # 0.0 Magnesium Level 3.4 H 4.3 H Medications Medications Current Medications Ketorolac Tromethamine (Toradol) 30 mg Q6H PRN IV PAIN; Start 11/17/16 at 21:00 ; Stop 11/18/16 at 20:59 Hydromorphone HCl (Dilaudid) 0.2 mg Q3H PRN IV PAIN LEVEL 1-5; Start 11/17/16 at 21:00; Stop 11/18/16 at 20:59 Hydromorphone HCl (Dilaudid) 0.4 mg Q3H PRN IV PAIN LEVEL 6-10; Start 11/17/16 at 21:00; Stop 11/18/16 at 20:59 Diphenhydramine HCl (Benadryl) 25 mg Q6H PRN IV ITCHING; Start 11/17/16 at 21:00 ; Stop 11/18/16 at 20:59 Ondansetron HCl 4 mg 4 mg Q6H PRN IV NAUSEA AND/OR VOMITING; Start 11/17/16 at 21:00; Stop 11/18/16 at 20:59 Lactated Ringer's (Lr) 1,000 ml @ 125 mls/hr Q8H IV Last administered on t 03:50; Admin Dose 125 MLS/HR; Start 11/17/16 at 20:51 Oxycodone/ Acetaminophen (Percocet (5/ 325)) 1 tab Q4H PRN PO PAIN LEVEL 4-6; Start 11/17/16 at 21:00 Oxycodone/ Acetaminophen (Percocet (5/ 325)) 2 tab Q4H PRN PO PAIN LEVEL 7-10; Start 11/17/16 at 21:00 Ibuprofen (Motrin) 600 mg Q6 PO ; Start 11/18/16 at 21:00 Simethicone (Mylicon) 160 mg Q8H PRN PO DISTENSION/GAS/BLOATING; Start 11/17/16 at 21:00 Senna/Docusate Sodium 1 tab 1 tab BID PO ; Start 11/17/16 at 21:00 Oxytocin/Lactated Ringer's 500 ml @ 0 mls/hr ONCE PRN IV For Hemorrhage Management; Start 11/17/16 at 21:00 Methylergonovine Maleate (Methergine) 0.2 mg ONCE PRN IM VAGINAL BLEEDING; Start 11/17/16 at 21:00 Carboprost Tromethamine (Hemabate) 250 mcg ONCE PRN IM VAGINAL BLEEDING; Start 11/17/16 at 21:00 Misoprostol 1000 mcg 1,000 mcg ONCE PRN [place] VAGINAL BLEEDING; Start 11/17/16 at 21 :00 Magnesium Sulfate (Magnesium Sulfate 20 Gm/500 ml) 500 ml @ 50 mls/hr Q10H IV Last administered on 11/18/16 13:42; Admin Dose 50 MLS/HR; Start 11/17/16 at 20: 51 Calcium Gluconate (Ca Gluc) 1 gm ONCE PRN IV FOR MAGNESIUM TOXICITY; Start at 21:00 Labetalol HCl (Labetalol) 20 mg Q10M PRN IV ELEVATED BLOOD PRESSURE Last administered on 11/18/16 01:21; Admin Dose 20 MG; Start 11/17/16 at 21:00 Labetalol HCl (Normodyne) 300 mg BID PO Last administered on 11/18/16 09:19; Admin Dose 300 MG; Start 11/18/16 at 09:15 AALIYAH ZEE MD Nov 18, 2016 15:56
[2016-11-18 17:20] VITALS: BP 169/87; PULSE 99; RESP 20
[2016-11-18 18:20] VITALS: BP 165/80; PULSE 101; RESP 18
[2016-11-18] MEDS: SENNA/DOCUSATE NA (8.6MG/50MG) TAB PO SCH ×2 (18:35→20:36)
--- NOTE | 2016-11-18 18:55 | QN ---
Documentation Comment Progress note postop day 1 Patient seen and evaluated awake alert oriented 3 Patient denies headache nausea vomiting shortness of breath visual changes epigastric Signs 165/80 respiration 18 pulse 101 HEENT within normal Lungs CTA bilateral CVS positive S1-S2 regular rhythm Abdomen soft nontender uterine fundus below umbilicus dressing clean and dry Extremity negative edema no calf tenderness Assessment status post primary delivery postop day 1 stable afebrile Patient currently on labetalol 300 mg p.o. twice daily as per medicine Endocrinology consult appreciated Plan discontinue magnesium sulfate 24 hours Strict preeclamptic precautions Iron supplement BRIEN ADKINS MD Nov 18, 2016 18:55
[2016-11-18 20:00] VITALS: BP 158/74; PULSE 102; RESP 17
[2016-11-18] MEDS: IBUPROFEN 600 MG TAB PO SCH (21:00)
[2016-11-18 21:47] VITALS: BP 156/79; PULSE 104; RESP 18
[2016-11-18] MEDS: FERROUS SULFATE (EC) 325 MG TAB PO SCH (21:47)
[2016-11-19] VITALS (7 sets, daily range): BP systolic 131–158; BP diastolic 63–80; PULSE 82–102; RESP 16–20
--- NOTE | 2016-11-19 02:03 | QN ---
Documentation Comment Progress note postop day 2 Patient seen and evaluated awake alert oriented 3 denies headache nausea vomiting shortness of breath visual change epigastric pain Vital signs blood pressure 156/79 Abdomen soft nontender negative distention no epigastric tenderness dressing clean Extremity negative edema no calf tenderness Assessment status post primary delivery completed magnesium sulfate 24 hours currently stable afebrile Plan continue antihypertensive medication Strict preeclamptic precautions BRIEN ADKINS MD Nov 19, 2016 02:03
[2016-11-19] MEDS ORDERED: LABETALOL 200 MG TAB PO SCH (03:00)
[2016-11-19] MEDS: OXYCODONE/ACETAMINOPHEN (5/325) TAB PO PRN (03:53)
[2016-11-19] MEDS: LACTATED RINGER'S 1,000 ML IV SCH (04:51)
[2016-11-19] MEDS: LABETALOL 200 MG TAB PO SCH ×3 (06:15→21:44)
[2016-11-19] MEDS: IBUPROFEN 600 MG TAB PO SCH ×4 (06:15→18:33)
[2016-11-19] MEDS: FERROUS SULFATE (EC) 325 MG TAB PO SCH ×2 (08:54→21:43)
[2016-11-19] MEDS: SENNA/DOCUSATE NA (8.6MG/50MG) TAB PO SCH ×2 (08:55→21:43)
--- NOTE | 2016-11-19 10:41 | PN ---
Date/Time of Note Date/Time of Note DATE: 11/19/16 TIME: 10:39 Assessment/Plan VTE Prophylaxis VTE Prophylaxis Intervention: ambulation Lines/Catheters IV Catheter Type (from Nrsg): Saline Lock Assessment/Plan Chief Complaint/Hosp Course S: 11/18 events noted 11/19: No chest pain dizziness anemia palpitations headache. Positive "hot flashes". Mag sulfate given this am. No issues w wound. O: Bp noted No pallor Reg; +sm no r/g Clear bs+ nt nd; no r/r/g Mild edema A/P 1. Htn urgency/ Pre eclampsia, mod stable; cont beta-pedro luis & pre eclampsia protocol. 2. Graves' disease/hyperthyroidism. Cont beta-pedro luis. Definitive management down the line 3. Anemia probably asymptomatic 4. Postop day 1 section 5. Possible nonadherence Problems: Exam/Review of Systems Vital Signs Vitals Vital Signs Date Time Temp Pulse Resp B/P Pulse Ox O2 Delivery O2 Flow Rate FiO2 11/19/16 06:15 101 17 156/77 Room Air 11/19/16 04:00 98.5 11/18/16 17:20 99 Intake and Output 11/18/16 11/18/16 11/19/16 15:00 23:00 07:00 Intake Total 1675 ml 375 ml Output Total 1400 ml 2600 ml 700 ml Balance 275 ml -2225 ml -700 ml Results Result Diagram: 11/18/16 0520 11/17/16 1150 Results 24 hrs Laboratory Tests Test 11/18/16 11:46 11/18/16 18:11 Magnesium Level 4.3 H 4.7 H Medications Medications Current Medications Oxycodone/ Acetaminophen (Percocet (5/ 325)) 1 tab Q4H PRN PO PAIN LEVEL 4-6; Start 11/17/16 at 21:00 Oxycodone/ Acetaminophen (Percocet (5/ 325)) 2 tab Q4H PRN PO PAIN LEVEL 7-10 Last administered on 11/19/16 03:53; Admin Dose 2 TAB; Start 11/17/16 at 21:00 Ibuprofen (Motrin) 600 mg Q6 PO Last administered on 11/19/16 06:15; Admin Dose 600 MG; Start 11/18/16 at 21:00 Simethicone (Mylicon) 160 mg Q8H PRN PO DISTENSION/GAS/BLOATING; Start 11/17/16 at 21:00 Senna/Docusate Sodium 1 tab 1 tab BID PO Last administered on 11/19/16 08:55; Admin Dose 1 TAB; Start 11/17/16 at 21:00 Oxytocin/Lactated Ringer's 500 ml @ 0 mls/hr ONCE PRN IV For Hemorrhage Management; Start 11/17/16 at 21:00 Methylergonovine Maleate (Methergine) 0.2 mg ONCE PRN IM VAGINAL BLEEDING; Start 11/17/16 at 21:00 Carboprost Tromethamine (Hemabate) 250 mcg ONCE PRN IM VAGINAL BLEEDING; Start 11/17/16 at 21:00 Misoprostol (Cytotec) 1,000 mcg ONCE PRN [place] VAGINAL BLEEDING; Start 11/17/16 at 21:00 Calcium Gluconate (Ca Gluc) 1 gm ONCE PRN IV FOR MAGNESIUM TOXICITY; Start at 21:00 Labetalol HCl (Labetalol) 20 mg Q10M PRN IV ELEVATED BLOOD PRESSURE Last administered on 11/18/16 01:21; Admin Dose 20 MG; Start 11/17/16 at 21:00 Ferrous Sulfate (Ferrous Sulfate (Ec)) 325 mg BID PO Last administered on 08:54; Admin Dose 325 MG; Start 11/18/16 at 21:00 Labetalol HCl (Normodyne) 300 mg Q8 PO Last administered on 11/19/16 06:15; Admin Dose 300 MG; Start 11/19/16 at 05:33 AALIYAH ZEE MD Nov 19, 2016 10:41
--- NOTE | 2016-11-19 13:24 | CONS ---
Date/Time of Note Date/Time of Note DATE: 11/19/16 TIME: 13:21 Assessment/Plan Assessment/Plan Chief Complaint/Hosp Course Giorgio 26-year-old female with a family history of Graves' disease who has Graves' disease herself. She was diagnosed 2 years ago was under the treatment of Dr. Jen Shen. She was on methimazole and dosages up to 40 mg a day although she was variably compliant. Had an established diagnosis of Graves' orbitopathy and that has not changed. Off of all treatment at the second month of due to the risk benefit ratio of the antithyroid drugs versus . She delivered yesterday for indication of preeclampsia reportedly. At this time she does have multiple review of systems consistent with thyrotoxicosis however she reports this is been stable over some months. Please note she is still hypertensive in the recovery area. In addition to this she is breast-feeding and has plans to breast-feed as long as possible. There is no review of systems consistent with thyroid storm, simply thyrotoxicosis. Problems: (1) Graves' disease with exophthalmos Status: Chronic Comment: Off treatment due to and just completed . Continue off treatment as not at risk of storm. When DONE with then start Methimazole 30 mg/day. (2) Pre-eclampsia Status: Acute Comment: As per ob. Qualifiers: Trimester: third trimester Qualified Code: O14.93 - Pre-eclampsia in third trimester (3) Status post Onset Date: ~ 11/17/2016 Status: Acute Comment: Stable post op Consultation Date/Type/Reason Admit Date/Time Nov 17, 2016 at 11:56 Initial Consult Date 11/18/16 Type of Consultation: Endocrinology Reason for Consultation Graves disease with orbito[athy and hyperthyroidism without crisis. Hypertension and pre eclampsia Referring Provider: LENNY STEELE 26 HR Interval Summary Constitutional: no complaints Exam/Review of Systems Vital Signs Vitals Vital Signs Date Time Temp Pulse Resp B/P Pulse Ox O2 Delivery O2 Flow Rate FiO2 11/19/16 08:00 98.7 88 19 132/63 Room Air 11/18/16 17:20 99 Intake and Output 11/18/16 11/18/16 11/19/16 15:00 23:00 07:00 Intake Total 1675 ml 375 ml Output Total 1400 ml 2600 ml 700 ml Balance 275 ml -2225 ml -700 ml Exam Constitutional: alert, oriented Head: atraumatic, normocephalic Eyes: other (exophthalmos) Neck: non-tender, other (smooth goiter without nodules), supple Results Result Diagram: 11/18/16 0520 11/17/16 1150 Results 24 hrs Laboratory Tests Test 11/18/16 18:11 Magnesium Level 4.7 H Medications Medications Current Medications Oxycodone/ Acetaminophen (Percocet (5/ 325)) 1 tab Q4H PRN PO PAIN LEVEL 4-6; Start 11/17/16 at 21:00 Oxycodone/ Acetaminophen (Percocet (5/ 325)) 2 tab Q4H PRN PO PAIN LEVEL 7-10 Last administered on 11/19/16 03:53; Admin Dose 2 TAB; Start 11/17/16 at 21:00 Ibuprofen (Motrin) 600 mg Q6 PO Last administered on 11/19/16 12:11; Admin Dose 600 MG; Start 11/18/16 at 21:00 Simethicone (Mylicon) 160 mg Q8H PRN PO DISTENSION/GAS/BLOATING; Start 11/17/16 at 21:00 Senna/Docusate Sodium 1 tab 1 tab BID PO Last administered on 11/19/16 08:55; Admin Dose 1 TAB; Start 11/17/16 at 21:00 Oxytocin/Lactated Ringer's 500 ml @ 0 mls/hr ONCE PRN IV For Hemorrhage Management; Start 11/17/16 at 21:00 Methylergonovine Maleate (Methergine) 0.2 mg ONCE PRN IM VAGINAL BLEEDING; Start 11/17/16 at 21:00 Carboprost Tromethamine (Hemabate) 250 mcg ONCE PRN IM VAGINAL BLEEDING; Start 11/17/16 at 21:00 Misoprostol (Cytotec) 1,000 mcg ONCE PRN [place] VAGINAL BLEEDING; Start 11/17/16 at 21:00 Calcium Gluconate (Ca Gluc) 1 gm ONCE PRN IV FOR MAGNESIUM TOXICITY; Start at 21:00 Labetalol HCl (Labetalol) 20 mg Q10M PRN IV ELEVATED BLOOD PRESSURE Last administered on 11/18/16 01:21; Admin Dose 20 MG; Start 11/17/16 at 21:00 Ferrous Sulfate (Ferrous Sulfate (Ec)) 325 mg BID PO Last administered on 08:54; Admin Dose 325 MG; Start 11/18/16 at 21:00 Labetalol HCl (Normodyne) 300 mg Q8 PO Last administered on 11/19/16 06:15; Admin Dose 300 MG; Start 11/19/16 at 05:33 SYLVIA GONZALES MD Nov 19, 2016 13:24
[2016-11-20] MEDS: IBUPROFEN 600 MG TAB PO SCH ×4 (01:00→17:39)
[2016-11-20 04:00] VITALS: BP 158/78; PULSE 94; RESP 19
[2016-11-20 06:24] VITALS: BP 144/77; PULSE 99; RESP 19
[2016-11-20] MEDS: LABETALOL 200 MG TAB PO SCH ×3 (06:24→22:05)
--- NOTE | 2016-11-20 08:04 | CONS ---
Date/Time of Note Date/Time of Note DATE: 11/20/16 TIME: 08:01 Assessment/Plan Assessment/Plan Chief Complaint/Hosp Course Giorgio 26-year-old female with a family history of Graves' disease who has Graves' disease herself. She was diagnosed 2 years ago was under the treatment of Dr. Jen Shen. She was on methimazole and dosages up to 40 mg a day although she was variably compliant. Had an established diagnosis of Graves' orbitopathy and that has not changed. Off of all treatment at the second month of due to the risk benefit ratio of the antithyroid drugs versus . She delivered yesterday for indication of preeclampsia reportedly. At this time she does have multiple review of systems consistent with thyrotoxicosis however she reports this is been stable over some months. Please note she is still hypertensive in the recovery area. In addition to this she is breast-feeding and has plans to breast-feed as long as possible. There is no review of systems consistent with thyroid storm, simply thyrotoxicosis. Problems: (1) Graves' disease with exophthalmos Status: Chronic Comment: Off treatment while . Ok without medicatons for now and will follow up as outpatient. Will sign off for now as stable Consultation Date/Type/Reason Admit Date/Time Nov 17, 2016 at 11:56 Initial Consult Date 11/18/16 Type of Consultation: Endocrinology Reason for Consultation Graves Disreasr wit thyrotoxicosis without storm. Referring Provider: LENNY STEELE 26 HR Interval Summary Constitutional: improved, no complaints Exam/Review of Systems Vital Signs Vitals Vital Signs Date Time Temp Pulse Resp B/P Pulse Ox O2 Delivery O2 Flow Rate FiO2 11/20/16 06:24 99 19 144/77 11/20/16 04:00 98.1 11/19/16 16:00 Room Air 11/18/16 17:20 99 Results No changes Result Diagram: 11/18/16 0520 11/17/16 1150 Medications Medications Current Medications Oxycodone/ Acetaminophen (Percocet (5/ 325)) 1 tab Q4H PRN PO PAIN LEVEL 4-6; Start 11/17/16 at 21:00 Oxycodone/ Acetaminophen (Percocet (5/ 325)) 2 tab Q4H PRN PO PAIN LEVEL 7-10 Last administered on 11/19/16 03:53; Admin Dose 2 TAB; Start 11/17/16 at 21:00 Ibuprofen (Motrin) 600 mg Q6 PO Last administered on 11/20/16 06:23; Admin Dose 600 MG; Start 11/18/16 at 21:00 Simethicone (Mylicon) 160 mg Q8H PRN PO DISTENSION/GAS/BLOATING; Start 11/17/16 at 21:00 Senna/Docusate Sodium 1 tab 1 tab BID PO Last administered on 11/19/16 21:43; Admin Dose 1 TAB; Start 11/17/16 at 21:00 Oxytocin/Lactated Ringer's 500 ml @ 0 mls/hr ONCE PRN IV For Hemorrhage Management; Start 11/17/16 at 21:00 Methylergonovine Maleate (Methergine) 0.2 mg ONCE PRN IM VAGINAL BLEEDING; Start 11/17/16 at 21:00 Carboprost Tromethamine (Hemabate) 250 mcg ONCE PRN IM VAGINAL BLEEDING; Start 11/17/16 at 21:00 Misoprostol (Cytotec) 1,000 mcg ONCE PRN [place] VAGINAL BLEEDING; Start 11/17/16 at 21:00 Calcium Gluconate (Ca Gluc) 1 gm ONCE PRN IV FOR MAGNESIUM TOXICITY; Start at 21:00 Labetalol HCl (Labetalol) 20 mg Q10M PRN IV ELEVATED BLOOD PRESSURE Last administered on 11/18/16 01:21; Admin Dose 20 MG; Start 11/17/16 at 21:00 Ferrous Sulfate (Ferrous Sulfate (Ec)) 325 mg BID PO Last administered on 21:43; Admin Dose 325 MG; Start 11/18/16 at 21:00 Labetalol HCl (Normodyne) 300 mg Q8 PO Last administered on 11/20/16 06:24; Admin Dose 300 MG; Start 11/19/16 at 05:33 SYLVIA GONZALES MD Nov 20, 2016 08:03
[2016-11-20 08:45] VITALS: BP 161/81; PULSE 89; RESP 16
[2016-11-20] MEDS: SENNA/DOCUSATE NA (8.6MG/50MG) TAB PO SCH ×2 (08:47→21:21)
[2016-11-20] MEDS: FERROUS SULFATE (EC) 325 MG TAB PO SCH ×2 (08:48→21:20)
--- NOTE | 2016-11-20 09:48 | QN ---
Documentation Comment Progress note postop day #3 Patient seen and evaluated awake alert oriented 3 denies headache nausea vomiting shortness of breath visual changes epigastric pain Vital signs blood pressure 144/77 Abdomen clean dry and intact negative distention nontender no epigastric pain Extremity negative edema no calf tenderness Assessment: Status post primary delivery postop day #3 stable afebrile doing well on labetalol 300 mg p.o. 3 times daily Plan continue strict preeclamptic precautions Follow-up with medicine for clearance discharge home tomorrow BRIEN ADKINS MD Nov 20, 2016 09:48
[2016-11-20] MEDS: OXYCODONE/ACETAMINOPHEN (5/325) TAB PO PRN (12:00)
[2016-11-20 12:30] VITALS: BP 168/63; PULSE 87; RESP 14
[2016-11-20] MEDS ORDERED: NIFEdipine (XL) 30 MG TAB PO SCH (15:00)
[2016-11-20 16:58] VITALS: BP 176/83; PULSE 94; RESP 16
[2016-11-20 19:30] VITALS: BP_SYST 114; BP_SYST 160; BP_DIAS 57; BP_DIAS 81; PULSE 71; PULSE 97; RESP 18; RESP 20
[2016-11-20] MEDS: NIFEdipine (XL) 60 MG TAB PO SCH (21:21)
[2016-11-21] MEDS: IBUPROFEN 600 MG TAB PO SCH ×4 (00:39→17:22)
[2016-11-21 04:00] VITALS: BP 153/72; PULSE 91; RESP 18
[2016-11-21] MEDS: LABETALOL 200 MG TAB PO SCH ×2 (05:45→14:16)
--- NOTE | 2016-11-21 05:49 | PN ---
DATE: 11/20/2016 SUBJECTIVE DATA: The patient is seen, she feels well. Her blood pressure is still elevated, the systolic is in the 119 range, and the diastolic is in low 100s. Currently patient is on Labetalol 300 mg orally every night schedule only, as well as needed. The patient is both breast feeding and bottle feeding. OBJECTIVE DATA: VITAL SIGNS: The rest of the vital signs are otherwise stable. GENERAL: The patient is alert and oriented, in no acute distress. The patient was feeding her baby at the bedside when I walked in. HEENT: Head normocephalic. Pupils are equal and reactive. Mucosal membranes are moist. EXTREMITIES: She has bilateral lower extremity pitting edema, about 2-3+. SKIN: Devoid of rash or jaundice. . LABORATORY AND DIAGNOSTIC DATA: There are no new lab values to report. ASSESSMENT: The patient is a 26-year-old female who had to have an emergency section because of . For which we are consulted for blood pressure management. Still blood pressure control. She has history of chronic Grave's disease. PLAN: Add Nifedipine _to her regimen, to help improve her blood pressure, and get it under control. Will start with a slightly higher dose and titrate lower as her blood pressure improves. The patient had lots of questions about the medication, and the possible side effects. I spoke with her in detail about this, and to follow. Thank you for the consult. Dictated By: Colleen Lombardo MD /day/lalitha /Document#: [id number]
[2016-11-21 08:20] VITALS: BP 131/69; PULSE 85; RESP 18
[2016-11-21] MEDS: FERROUS SULFATE (EC) 325 MG TAB PO SCH (09:46)
[2016-11-21] MEDS: SENNA/DOCUSATE NA (8.6MG/50MG) TAB PO SCH (09:47)
[2016-11-21] MEDS: NIFEdipine (XL) 60 MG TAB PO SCH (09:47)
[2016-11-21 11:52] VITALS: BP 147/77; PULSE 85; RESP 16
[2016-11-21] MEDS ORDERED: LABE200T25 PO (16:16)
[2016-11-21] MEDS ORDERED: NIFE60TA7 PO (16:16)
[2016-11-21 16:20] VITALS: BP 162/92; PULSE 98; RESP 17
--- NOTE | 2016-11-21 19:44 | PD.PPDC ---
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
[2016-11-21] MEDS ORDERED: NIFEdipine (XL) 30 MG TAB PO SCH (21:00)
--- NOTE | 2016-11-21 22:45 | CONS ---
Date/Time of Note Date/Time of Note DATE: 11/21/16 TIME: 22:41 Assessment/Plan Assessment/Plan Chief Complaint/Hosp Course The patient is a 26-year-old female who had to have an emergency section because of Preeclampsia. For which we are consulted for blood pressure management. Bp control is fairly improved at this time. She has history of chronic Grave's disease and has been reviewed by endo. Patient is ok for d/c from a medical standpoint on labetalol and nifedipine. Further outpt BP control per her PCP and OB. Plan discusssed with patient, need for good followup emphasized. Patient in agreement with treatment plan. Problems: Consultation Date/Type/Reason Admit Date/Time Nov 17, 2016 at 11:56 Initial Consult Date 11/18/16 Type of Consultation: Endocrinology Referring Provider: LENNY STEELE Exam/Review of Systems Vital Signs Vitals Vital Signs Date Time Temp Pulse Resp B/P Pulse Ox O2 Delivery O2 Flow Rate FiO2 11/21/16 16:20 97.7 98 17 162/92 Room Air 11/18/16 17:20 99 Results Result Diagram: 11/18/16 0520 11/17/16 1150 CRUZ FIGUEREDO Nov 21, 2016 22:45
--- NOTE | 2016-11-22 03:54 | DS ---
DATE OF ADMISSION: 11/17/2016 DATE OF DISCHARGE: 11/21/2016 PRIMARY DIAGNOSIS: A 26-year-old, 1, para 0, intrauterine at 38 weeks' gestational age, chronic hypertension with superimposed preeclampsia with severe features. Hyperthyroidism, limited care remote from delivery. PROCEDURE: Primary low transverse delivery. DISCHARGE CONDITION: Stable. DISCHARGE INSTRUCTIONS: Nothing per vaginal. No heavy lifting x6 weeks. Diet regular. DISCHARGE MEDICATIONS: 1. Labetalol 300 mg p.o. t.i.d. 2. Nifedipine 60 mg p.o. b.i.d. 3. Percocet. 4. Colace. 5. Iron. 6. Motrin. DISCHARGE SUMMARY: Ms. Ca Roberts is a 26-year-old, 1, para 1, status post primary low transverse delivery on 11/17/2016. She had a viable female, 8, 9, respectively at 1 and 5 minutes, weight 7 pounds 6 ounces. The patient was given magnesium sulfate 24 hours secondary to preeclampsia panel also was managed for hypertension with Internal Medicine. She was also seen by Endocrinology, which both Medicine and Endocrinology cleared her on postop day 4 for discharge. She will follow up with Dr. Lewis this Sunday for her management of chronic hypertension and history of hyperthyroidism/Graves disease. The patient had an uneventful postop day 1, 2, 3 and 4. Her incision is clean, dry, intact. She is ambulating, tolerating diet, positive flatulence, positive bowel movement. She denies any headache, nausea, vomiting, shortness of breath or visual changes or epigastric pain. Strict preeclamptic precautions was given to the patient. Patient will follow up in the office in 2 weeks for /postop care. Dictated By: Angel Yun MD /day/ /Document#: [id number]
--- NOTE | 2016-11-22 07:37 | CONS ---
Date/Time of Note Date/Time of Note DATE: 11/22/16 TIME: 07:34 Consultation Date/Type/Reason Admit Date/Time Nov 17, 2016 at 11:56 Initial Consult Date 11/18/16 Type of Consultation: Anesthesiology Reason for Consultation Follow up Referring Provider: LENNY STEELE 24 HR Interval Summary Free Text/Dictation Pt seen and examined at bedside on 11/18/16 is s/p primary c/s. Pt received spinal duramorph for post-op pain control. She states her pain is adequately controlled. Denies N/V/C/D/FARFAN/Numbness in extremities. Will follow. Constitutional: improved, no complaints Exam/Review of Systems Vital Signs Vitals Vital Signs Date Time Temp Pulse Resp B/P Pulse Ox O2 Delivery O2 Flow Rate FiO2 11/21/16 16:20 97.7 98 17 162/92 Room Air 11/18/16 17:20 99 Results Result Diagram: 11/18/16 0520 DANYELL ORTIZ Nov 22, 2016 07:37
== END 2016-11-21 20:15 | disposition home or self-care (01) | DRG 766 ==
LOC: OBT 11:10 → L-D 11:11 → OBT 11:55 → L-D 11:56 → PP1 11-18 17:21
PROVIDERS: ADMIT Obstetrics & Gynecology; ATTEND Obstetrics & Gynecology
PROC: 3E033VJ Introduction of Other Hormone into Peripheral Vein, Percutaneous Approach (ICD-10-PCS; 2016-11-17)
PROC: 10D00Z1 Extraction of Products of Conception, Low, Open Approach (ICD-10-PCS; principal; 2016-11-17 20:00)
DX: O10.92 Unspecified pre-existing hypertension complicating childbirth (principal); E05.00 Thyrotoxicosis with diffuse goiter without thyrotoxic crisis or storm; O14.14 Severe pre-eclampsia complicating childbirth; O99.284 Endocrine, nutritional and metabolic diseases complicating childbirth; Z3A.38 38 weeks gestation of pregnancy; Z37.0 Single live birth
CPT/HCPCS: 76815; 76818; 80053; 80307; 81001; 83735; 84436; 84443; 84479; 84560; 85025; 85384; 85610; 85730; 86592; 86803; 86900; 86901; 87340; 99464; G0463; J0290; J0360; J0690; J1885; J2175; J2274; J2370; J2590; J3475; J7120